=== PATIENT | male | born 1940 | race African-American/Black ===

== ENCOUNTER 2023-01-27 11:05 | Inpatient (IN) | payer MEDICARE, MEDICAID ==
[~2023-01-27] VITALS: Ht 182.9 cm; Wt 83.6 kg
[~2023-01-27 11:05] MED LIST: ALLO300T2 PO; AMLO5TAB88 PO; APIX2.5T PO; ASCO-339 PO; ASPI-1497 PO; ATOR40TA70 PO; CLON0.1T PO; COR25 PO; FAMO20TA8 PO; GABA-534 PO; HYDR-4001 PO; LOSA100T33 PO; MULT-230 PO; TOPUD PO; ZINC50TA69 PO
[2023-01-27] MEDS ORDERED: ONDANSETRON HCL 4MG/2ML INJ IV STA (11:23)
[2023-01-27] MEDS ORDERED: SODIUM CHLORIDE 0.9% 1,000 ML IV ONE ×2 (11:30→16:00)
[2023-01-27] MEDS ORDERED: ONDANSETRON HCL 4MG/2ML INJ IV NR (14:00)
[2023-01-27 14:54] LABS: HEMATOCRIT. 40.9 % (42.0-52.0); HEMOGLOBIN. 13.6 g/dL (14.0-18.0); MEAN CORPUSCULAR HEMOGLOBIN 29.5 pg (28.0-32.0); MEAN CORPUSCULAR HGB CONC 33.2 g/dL (31.0-37.0); MEAN CORPUSCULAR VOLUME 88.9 fL (80.0-94.0); MEAN PLATELET VOLUME 7.7 fl (7.4-10.4); PLATELET 279 x1000/uL (130-400); RED CELL DISTRIBUTION WIDTH 15.9 % (11.6-14.6); WHITE BLOOD COUNT 22.8 x1000/uL (4.5-11.0)
[2023-01-27 14:56] LABS: DIFFERENTIAL COMMENT 1
[2023-01-27] MEDS ORDERED: MORPHINE SULFATE 4 MG/ML CPJ (NOT FOR IM USE) IV ONE (15:00)
[2023-01-27 15:10] LABS: ALANINE AMINOTRANSFERASE 11 IU/L (10-49); ASPARTATE AMINOTRANSFERASE 18 IU/L (<34); BILIRUBIN TOTAL 2.4 mg/dL (0.1-1.0); CARBON DIOXIDE 27 mEq/L (21-32); CHLORIDE 105 mEq/L (98-107); CREATININE 0.9 mg/dL (0.6-1.3); GLUCOSE 151 mg/dL (70-105); POTASSIUM 3.7 mEq/L (3.5-5.1); PROTEIN TOTAL 7.7 g/dL (6.0-8.3); SODIUM 143 mEq/L (136-145); TROPONIN I HIGH SENSITIVITY 31 ng/L (3.0-53); UREA NITROGEN BLOOD 28 mg/dL (9-23)
[2023-01-27 15:23] LABS: LACTIC ACID 2.2 mmol/L (0.4-2.0)
[2023-01-27 15:24] LABS: PLATELET ESTIMATE NORMAL
[2023-01-27] MEDS ORDERED: VANCOMYCIN 1G PREMIX 200 ML IV NR (15:45)
[2023-01-27] MEDS ORDERED: PIPERACILLIN/TAZOBACTAM 3.375GM/50ML PREMIX IV ONE (15:45)
[2023-01-27] MEDS ORDERED: PIPERACILLIN/TAZ 3.375G PREMIX 50 ML IV NR (16:00)
[2023-01-27] MEDS ORDERED: GUAIFENESIN 200MG/10ML SUGAR FREE UDC PO PRN (18:00)
[2023-01-27] MEDS ORDERED: ONDANSETRON HCL 4MG/2ML INJ IV PRN (18:00)
[2023-01-27] MEDS: SODIUM CHLORIDE 0.45% 1,000 ML IV SCH ×2 (18:00→22:43)
[2023-01-27] MEDS ORDERED: IPRATROPIUM/ALBUTEROL 0.5-3(2.5)MG/3ML NEB HHN PRN (18:00)
[2023-01-27] MEDS ORDERED: CLONIDINE 0.1MG TABLET PO PRN (18:00)
[2023-01-27] MEDS ORDERED: MAGNESIUM/ALUMINUM HYDROXIDE/SIMETHICONE 30ML UDC PO PRN (18:00)
[2023-01-27] MEDS ORDERED: DOCUSATE SODIUM 100MG CAPSULE PO PRN (18:00)
[2023-01-27] MEDS ORDERED: ACETAMINOPHEN 325MG TABLET PO PRN (18:00)
[2023-01-27 18:06] VITALS: BP 128/111; PULSE 80; RESP 16; TEMP 98
[2023-01-27 18:11] VITALS: BP 128/111; PULSE 78; RESP 16; TEMP 98
[2023-01-27] MEDS ORDERED: DEXTROSE 50% WATER 50ML SYRINGE IV PRN (18:45)
[2023-01-27] MEDS: PANTOPRAZOLE SODIUM 40 MG/VIAL IV SCH (18:45)
[2023-01-27 20:06] VITALS: BP 149/61; PULSE 86; RESP 16; TEMP 98.4
[2023-01-27] MEDS: INSULIN LISPRO 100 UNITS/ML SUBCUT SCH (20:46)
[2023-01-27] MEDS: BLOOD SUGAR DIAGNOSTIC STRIP TEST SCH (20:46)
[2023-01-27 21:12] LABS: INR 1.1; PROTHROMBIN TIME 11.8 sec (9.6-11.0)
[2023-01-27 21:41] LABS: BILIRUBIN DIRECT 0.8 mg/dL (<=3.0)
[2023-01-27] MEDS: PIPERACILLIN/TAZOBACTAM 3.375 G in DEXTROSE 5% WATER 50 ML IV SCH (22:00)
[2023-01-27] MEDS: VANCOMYCIN 1.25GM PMX (XELLIA) 250 ML IV SCH (23:20)
[2023-01-28 00:08] VITALS: BP 151/69; PULSE 80; RESP 19; TEMP 98
[2023-01-28] MEDS: PIPERACILLIN/TAZOBACTAM 3.375 G in DEXTROSE 5% WATER 50 ML IV SCH ×4 (02:34→21:00)
[2023-01-28 04:21] VITALS: BP 179/78; PULSE 83; RESP 20; TEMP 98.2
[2023-01-28 05:35] LABS: CLARITY URINE CLOUDY (CLEAR); COLOR URINE DARK YELLOW (YELLOW); GLUCOSE URINE NEGATIVE (NEGATIVE); KETONES URINE 1+ (NEGATIVE); LEUKOCYTE ESTERASE URINE NEGATIVE (NEGATIVE); NITRITE URINE NEGATIVE (NEGATIVE); OCCULT BLOOD URINE TRACE (NEGATIVE); PH URINE 5.5 (4.5-8.0); PROTEIN URINE 2+ (NEGATIVE); SPECIFIC GRAVITY URINE 1.028 (1.005-1.030)
[2023-01-28 05:37] LABS: SQUAMOUS EPITHELIAL CELL URINE 1+ /lpf (RARE/1+); YEAST URINE NONE SEEN
[2023-01-28 05:48] LABS: BACTERIA URINE 1+; RBC URINE 0-2 /hpf (0-2)
[2023-01-28] MEDS: BLOOD SUGAR DIAGNOSTIC STRIP TEST SCH ×4 (06:32→20:44)
[2023-01-28] MEDS: INSULIN LISPRO 100 UNITS/ML SUBCUT SCH ×4 (06:33→20:44)
[2023-01-28 06:55] LABS: HEMATOCRIT. 37.3 % (42.0-52.0); HEMOGLOBIN. 12.5 g/dL (14.0-18.0); MEAN CORPUSCULAR HEMOGLOBIN 30.3 pg (28.0-32.0); MEAN CORPUSCULAR HGB CONC 33.5 g/dL (31.0-37.0); MEAN CORPUSCULAR VOLUME 90.4 fL (80.0-94.0); MEAN PLATELET VOLUME 7.9 fl (7.4-10.4); PLATELET 286 x1000/uL (130-400); RED BLOOD CELL COUNT 4.13 mill/uL (4.7-6.1); RED CELL DISTRIBUTION WIDTH 15.6 % (11.6-14.6); WHITE BLOOD COUNT 15.4 x1000/uL (4.5-11.0)
[2023-01-28 07:04] LABS: DIFFERENTIAL COMMENT 1
[2023-01-28 07:17] LABS: ALANINE AMINOTRANSFERASE 9 IU/L (10-49); ALBUMIN 3.9 g/dL (3.2-4.8); ASPARTATE AMINOTRANSFERASE 16 IU/L (<34); BILIRUBIN TOTAL 1.6 mg/dL (0.1-1.0); CALCIUM 9.8 mg/dL (8.7-10.4); CARBON DIOXIDE 28 mEq/L (21-32); CHLORIDE 105 mEq/L (98-107); CHOLESTEROL 164 mg/dL (<200); CREATININE 0.8 mg/dL (0.6-1.3); GLUCOSE 125 mg/dL (70-105); HDL CHOLESTEROL < 20 mg/dL (>55); LDL CHOLESTEROL 129 mg/dL (5-100); PROTEIN TOTAL 7.2 g/dL (6.0-8.3); SODIUM 145 mEq/L (136-145); T4 FREE 1.14 ng/dL (0.89-1.76); THYROID STIMULATING HORMONE 1.22 uIU/mL (0.55-4.78); TRIGLYCERIDE 139 mg/dL (0-150); UREA NITROGEN BLOOD 30 mg/dL (9-23)
[2023-01-28 08:00] VITALS: BP 150/67; PULSE 79; RESP 23; TEMP 99.1
[2023-01-28] MEDS ORDERED: LIDOCAINE HCL 1% 10 MG/ML 10ML VIAL ONE (08:27)
[2023-01-28 09:00] LABS: POTASSIUM 2.8 mEq/L (3.5-5.1)
[2023-01-28] MEDS: PANTOPRAZOLE SODIUM 40 MG/VIAL IV SCH ×2 (09:59→18:13)
[2023-01-28] MEDS: KCL 20MEQ/100ML PREMIX 100 ML IV SCH ×2 (10:02→16:01)
[2023-01-28] MEDS ORDERED: KCL 20MEQ/100ML PREMIX 100 ML IV ONE (11:30)
[2023-01-28 12:00] VITALS: BP 149/88; PULSE 88; RESP 20; TEMP 99
[2023-01-28] MEDS ORDERED: KCL 20MEQ/100ML PREMIX 100 ML IV SCH (12:00)
[2023-01-28 13:12] LABS: HEMATOCRIT 40.5 % (42.0-52.0); HEMOGLOBIN 13.4 g/dL (14.0-18.0)
[2023-01-28 15:44] LABS: IRON 52 ug/dL (65-175); TOTAL IRON BINDING CAPACITY 177 ug/dl (250-425)
[2023-01-28 16:00] VITALS: BP 148/81; PULSE 84; RESP 22; TEMP 98
[2023-01-28] MEDS ORDERED: SODIUM CHL 0.45% + KCL 20MEQ/L 1,000 ML IV SCH (16:00)
[2023-01-28 16:03] LABS: FERRITIN 506 ng/mL (22-322); FOLIC ACID (FOLATE) SERUM 13.28 ng/mL (>5.38); VITAMIN B12 SERUM 281 pg/mL (211-911)
[2023-01-28 17:22] LABS: POTASSIUM 3.7 mEq/L (3.5-5.1)
[2023-01-28 17:22] LABS: PLATELET ESTIMATE NORMAL
[2023-01-28] MEDS ORDERED: KCL 20MEQ/100ML PREMIX 100 ML IV NR (18:00)
[2023-01-28] MEDS: VANCOMYCIN 1.25GM PMX (XELLIA) 250 ML IV SCH (18:14)
[2023-01-28] MEDS: DEXT 5%/0.45% NACL 1000ML 1,000 ML IV SCH (18:14)
[2023-01-28 20:00] VITALS: BP 97/63; PULSE 88; RESP 22; TEMP 98.5
[2023-01-29] VITALS: BP 138/68; PULSE 88; RESP 17; TEMP 98.4
[2023-01-29 02:12] LABS: HEMATOCRIT 37.5 % (42.0-52.0); HEMOGLOBIN 12.6 g/dL (14.0-18.0); MEAN CORPUSCULAR HEMOGLOBIN 29.9 pg (28.0-32.0); MEAN CORPUSCULAR HGB CONC 33.6 g/dL (31.0-37.0); PLATELET 282 x1000/uL (130-400); RED BLOOD CELL COUNT 4.21 mill/uL (4.7-6.1); RED CELL DISTRIBUTION WIDTH 15.9 % (11.6-14.6); WHITE BLOOD COUNT 12.7 x1000/uL (4.5-11.0)
[2023-01-29 04:00] VITALS: BP 145/57; PULSE 93; RESP 13; TEMP 98.4
[2023-01-29 04:00] LABS: BASOPHILS % 0.3 % (0.0-2.0); DIFFERENTIAL COMMENT 0; EOSINOPHILS % 0.2 % (0.0-5.0); HEMATOCRIT. 41.1 % (42.0-52.0); HEMOGLOBIN. 13.8 g/dL (14.0-18.0); LYMPHOCYTES % 11.6 % (20.0-50.0); MEAN CORPUSCULAR HEMOGLOBIN 29.7 pg (28.0-32.0); MEAN CORPUSCULAR HGB CONC 33.5 g/dL (31.0-37.0); MEAN CORPUSCULAR VOLUME 88.7 fL (80.0-94.0); MEAN PLATELET VOLUME 7.5 fl (7.4-10.4); MONOCYTES % 8.9 % (2.0-8.0); PLATELET 290 x1000/uL (130-400); RED BLOOD CELL COUNT 4.64 mill/uL (4.7-6.1); RED CELL DISTRIBUTION WIDTH 15.3 % (11.6-14.6); WHITE BLOOD COUNT 11.8 x1000/uL (4.5-11.0)
[2023-01-29 04:07] LABS: INR 1.1; PROTHROMBIN TIME 11.8 sec (9.6-11.0)
[2023-01-29] MEDS: DEXT 5%/0.45% NACL 1000ML 1,000 ML IV SCH ×3 (04:20→22:09)
[2023-01-29 05:04] LABS: CARBON DIOXIDE 25 mEq/L (21-32); CHLORIDE 108 mEq/L (98-107); CREATININE 0.8 mg/dL (0.6-1.3); GLUCOSE 171 mg/dL (70-105); POTASSIUM 3.5 mEq/L (3.5-5.1); SODIUM 144 mEq/L (136-145); UREA NITROGEN BLOOD 14 mg/dL (9-23)
[2023-01-29] MEDS: PIPERACILLIN/TAZOBACTAM 3.375 G in DEXTROSE 5% WATER 50 ML IV SCH ×3 (05:38→22:06)
[2023-01-29] MEDS: BLOOD SUGAR DIAGNOSTIC STRIP TEST SCH ×4 (06:50→21:00)
[2023-01-29] MEDS: INSULIN LISPRO 100 UNITS/ML SUBCUT SCH ×4 (07:13→21:00)
[2023-01-29 08:00] VITALS: BP 143/87; PULSE 98; RESP 21; TEMP 98.4
[2023-01-29] MEDS: PANTOPRAZOLE SODIUM 40 MG/VIAL IV SCH ×2 (09:29→17:44)
[2023-01-29 09:32] LABS: HEMOGLOBIN 12.3 g/dL (14.0-18.0)
[2023-01-29] MEDS ORDERED: VANCOMYCIN 1.25GM PMX (XELLIA) 250 ML IV SCH (10:00)
[2023-01-29 12:00] VITALS: BP 135/60; PULSE 89; RESP 17; TEMP 99
[2023-01-29 13:34] LABS: HEMATOCRIT 38.2 % (42.0-52.0)
[2023-01-29] MEDS ORDERED: KCL 20MEQ/100ML PREMIX 100 ML IV NR (15:30)
[2023-01-29 16:00] VITALS: BP 130/80; PULSE 97; RESP 18; TEMP 98.4
[2023-01-29] MEDS ORDERED: ONDANSETRON HCL 4MG/2ML INJ IV PRN (16:00)
[2023-01-29] MEDS ORDERED: LABETALOL 5MG/ML SYR 20 MG/4 ML SYRINGE IV PRN (16:00)
[2023-01-29] MEDS ORDERED: MEPERIDINE HCL/PF 25MG/ML CPJ IV PRN (16:00)
[2023-01-29] MEDS ORDERED: HYDROMORPHONE HCL/PF 2MG/ML CPJ IV PRN (16:00)
[2023-01-29] MEDS: METOCLOPRAMIDE HCL 10MG/2ML VIAL IV SCH (17:44)
[2023-01-29] MEDS: SUCRALFATE 1 G/10 ML UDC PO SCH ×2 (17:45→22:08)
[2023-01-29 20:00] VITALS: PULSE 89; RESP 18; TEMP 97.9
[2023-01-30] VITALS: BP 154/64; PULSE 110; RESP 21; TEMP 98.4
[2023-01-30 04:00] VITALS: BP 138/75; PULSE 87; RESP 24; TEMP 98.2
[2023-01-30] MEDS ORDERED: VANCOMYCIN 1250MG in DEXTROSE 5% WATER 250ML IV SCH (04:00)
[2023-01-30] MEDS: METOCLOPRAMIDE HCL 10MG/2ML VIAL IV SCH (06:16)
[2023-01-30] MEDS: PIPERACILLIN/TAZOBACTAM 3.375 G in DEXTROSE 5% WATER 50 ML IV SCH (06:16)
[2023-01-30] MEDS: SUCRALFATE 1 G/10 ML UDC PO SCH (06:16)
[2023-01-30] MEDS: BLOOD SUGAR DIAGNOSTIC STRIP TEST SCH (06:29)
[2023-01-30] MEDS: INSULIN LISPRO 100 UNITS/ML SUBCUT SCH (06:29)
[2023-01-30 08:00] VITALS: BP 145/49; PULSE 88; RESP 16; TEMP 97.6
[2023-01-30] MEDS: PANTOPRAZOLE SODIUM 40 MG/VIAL IV SCH (09:00)
[2023-01-30] MEDS ORDERED: SUCR1TAB30 PO (10:03)
[2023-01-30] MEDS ORDERED: PANT40SU PO (10:03)
[2023-01-30 11:24] LABS: HEMATOCRIT. 34.3 % (42.0-52.0); HEMOGLOBIN. 11.5 g/dL (14.0-18.0); MEAN CORPUSCULAR HEMOGLOBIN 29.6 pg (28.0-32.0); MEAN CORPUSCULAR HGB CONC 33.6 g/dL (31.0-37.0); MEAN CORPUSCULAR VOLUME 88.1 fL (80.0-94.0); MEAN PLATELET VOLUME 7.4 fl (7.4-10.4); PLATELET 269 x1000/uL (130-400); RED BLOOD CELL COUNT 3.89 mill/uL (4.7-6.1); RED CELL DISTRIBUTION WIDTH 15.5 % (11.6-14.6); WHITE BLOOD COUNT 14.1 x1000/uL (4.5-11.0)
[2023-01-30 11:29] LABS: DIFFERENTIAL COMMENT 1
[2023-01-30 11:57] LABS: ALANINE AMINOTRANSFERASE 8 IU/L (10-49); ALBUMIN 3.2 g/dL (3.2-4.8); ASPARTATE AMINOTRANSFERASE 15 IU/L (<34); BILIRUBIN TOTAL 1.3 mg/dL (0.1-1.0); CALCIUM 8.8 mg/dL (8.7-10.4); CARBON DIOXIDE 26 mEq/L (21-32); CHLORIDE 109 mEq/L (98-107); CREATININE 0.7 mg/dL (0.6-1.3); GLUCOSE 191 mg/dL (70-105); PROTEIN TOTAL 6.1 g/dL (6.0-8.3); SODIUM 143 mEq/L (136-145); UREA NITROGEN BLOOD 9 mg/dL (9-23)
[2023-01-30 15:14] VITALS: BP 128/57; PULSE 78; TEMP 99.2; O2SAT 99
[2023-01-31 12:54] LABS: ANISOCYTOSIS 1+; PLATELET ESTIMATE NORMAL
== END 2023-01-30 15:22 | DRG 871 ==
LOC: ER 11:05 → 3WST 15:50
PROVIDERS: ADMIT Internal Medicine; ATTEND Internal Medicine
PROC: 05H633Z Insertion of Infusion Device into Left Subclavian Vein, Percutaneous Approach (ICD-10-PCS; 2023-01-28)
PROC: B547ZZA Ultrasonography of Left Subclavian Vein, Guidance (ICD-10-PCS; 2023-01-28)
PROC: 0DB78ZX Excision of Stomach, Pylorus, Via Natural or Artificial Opening Endoscopic, Diagnostic (ICD-10-PCS; principal; 2023-01-29)
DX: A41.9 Sepsis, unspecified organism (principal); K27.4 Chronic or unspecified peptic ulcer, site unspecified, with hemorrhage; K56.7 Ileus, unspecified; K22.10 Ulcer of esophagus without bleeding; K21.9 Gastro-esophageal reflux disease without esophagitis; K31.89 Other diseases of stomach and duodenum; D64.9 Anemia, unspecified; I10 Essential (primary) hypertension; I48.91 Unspecified atrial fibrillation; E11.621 Type 2 diabetes mellitus with foot ulcer; E80.6 Other disorders of bilirubin metabolism; E87.6 Hypokalemia; E11.51 Type 2 diabetes mellitus with diabetic peripheral angiopathy without gangrene; L97.509 Non-pressure chronic ulcer of other part of unspecified foot with unspecified severity; N40.0 Benign prostatic hyperplasia without lower urinary tract symptoms; Z79.01 Long term (current) use of anticoagulants; Z79.899 Other long term (current) drug therapy; Z85.46 Personal history of malignant neoplasm of prostate; Z89.612 Acquired absence of left leg above knee; Z95.828 Presence of other vascular implants and grafts; Z20.822 Contact with and (suspected) exposure to COVID-19
CPT/HCPCS: 36415; 36573; 71045; 74018; 74176; 80048; 80053; 80061; 80202; 81003; 82248; 82607; 82728; 82746; 82962; 83036; 83540; 83550; 83605; 83615; 83735; 83880; 84132; 84145; 84439; 84443; 84484; 85014; 85018; 85025; 85027; 85044; 87426; 88305; 93005; 93922; 99285; A6261; C1725; C1893; C9113; J1815; J2270; J2405; J2543; J2765; J3370; J3480; J3490; J7030; J7060

== ENCOUNTER 2023-05-07 15:28 | Inpatient (IN) | payer MEDICARE, MEDICAID ==
[~2023-05-07] VITALS: Ht 172.7 cm; Wt 82.1 kg
[~2023-05-07 15:28] MED LIST changes: -APIX2.5T PO; -ASPI-1497 PO; -FAMO20TA8 PO; -HYDR-4001 PO; +PANT40SU PO; +SUCR1TAB30 PO
[2023-05-07 17:42] LABS: BASOPHILS % 0.4 % (0.0-2.0); EOSINOPHILS % 0.2 % (0.0-5.0); HEMOGLOBIN. 13.5 g/dL (14.0-18.0); MEAN CORPUSCULAR HEMOGLOBIN 29.4 pg (28.0-32.0); MEAN CORPUSCULAR HGB CONC 32.9 g/dL (31.0-37.0); MEAN CORPUSCULAR VOLUME 89.4 fL (80.0-94.0); MEAN PLATELET VOLUME 7.3 fl (7.4-10.4); NEUTROPHILS % 77.4 % (40.0-76.0); PLATELET 268 x1000/uL (130-400); RED BLOOD CELL COUNT 4.59 mill/uL (4.7-6.1); RED CELL DISTRIBUTION WIDTH 15.5 % (11.6-14.6)
[2023-05-07 17:56] LABS: AMMONIA < 17 uMol/L (<32)
[2023-05-07 17:57] LABS: ALANINE AMINOTRANSFERASE < 7 IU/L (10-49); ALBUMIN 4.3 g/dL (3.2-4.8); ASPARTATE AMINOTRANSFERASE 22 IU/L (<34); BILIRUBIN TOTAL 0.8 mg/dL (0.1-1.0); CALCIUM 9.4 mg/dL (8.7-10.4); CARBON DIOXIDE 21 mEq/L (21-32); CHLORIDE 105 mEq/L (98-107); CREATININE 0.7 mg/dL (0.6-1.3); GLUCOSE 86 mg/dL (70-105); PROTEIN TOTAL 8.1 g/dL (6.0-8.3); SODIUM 137 mEq/L (136-145); UREA NITROGEN BLOOD 10 mg/dL (9-23)
[2023-05-07 18:16] LABS: ETHANOL BLOOD < 10 mg/dL (<10); TROPONIN I HIGH SENSITIVITY 59 ng/L (3.0-53)
[2023-05-07] MEDS: LORAZEPAM 2MG/ML INJ IV ONE (18:54)
[2023-05-07] MEDS ORDERED: DOCUSATE SODIUM 100MG CAPSULE PO PRN (19:45)
[2023-05-07] MEDS ORDERED: ACETAMINOPHEN 325MG TABLET PO PRN (19:45)
[2023-05-07] MEDS ORDERED: GUAIFENESIN 200MG/10ML SUGAR FREE UDC PO PRN (19:45)
[2023-05-07] MEDS ORDERED: IPRATROPIUM/ALBUTEROL 0.5-3(2.5)MG/3ML NEB HHN PRN (19:45)
[2023-05-07] MEDS ORDERED: ONDANSETRON HCL 4MG/2ML INJ IV PRN (19:45)
[2023-05-07] MEDS ORDERED: CLONIDINE 0.1MG TABLET PO PRN (19:45)
[2023-05-07] MEDS: SODIUM CHLORIDE 0.9% 1,000 ML IV ONE (20:07)
[2023-05-07] MEDS: CEFTRIAXONE 1GM/50ML 50 ML IV ONE (20:08)
[2023-05-07] MEDS: AZITHROMYCIN 500MG/250ML 250 ML IV ONE (20:28)
[2023-05-07] MEDS: IOHEXOL-350 100 ML BOTTLE ONE (22:26)
[2023-05-07] MEDS ORDERED: NICARDIPINE 50 MG in SODIUM CHLORIDE 0.9% 230 ML IV STA (22:34)
[2023-05-07] MEDS: SODIUM CHLORIDE 0.9% 1,000 ML IV SCH (23:27)
[2023-05-07] MEDS ORDERED: DEXTROSE 50% WATER 50ML SYRINGE IV PRN (23:30)
[2023-05-07] MEDS: DEXAMETHASONE 10 MG/ML VIAL IV ONE (23:34)
[2023-05-07] MEDS: LEVETIRACETAM 500MG PREMIX 100 ML IV ONE (23:35)
[2023-05-07] MEDS: NICARDIPINE 40MG/200ML PREMIX 200 ML IV NR (23:51)
[2023-05-08] VITALS (74 sets, daily range): BP systolic 91–179; BP diastolic 41–149; PULSE 74–98; RESP 15–29; TEMP 97.8–99.4
[2023-05-08] MEDS: DEXAMETHASONE 4MG/ML 1ML VIAL IV SCH (00:09)
[2023-05-08] MEDS: DEXT 5%/LACTATED RINGERS 1,000 ML IV SCH (02:00)
[2023-05-08] MEDS: BLOOD SUGAR DIAGNOSTIC STRIP TEST SCH (05:35)
[2023-05-08 05:39] LABS: HEMATOCRIT. 36.2 % (42.0-52.0); MEAN CORPUSCULAR HEMOGLOBIN 29.6 pg (28.0-32.0); MEAN CORPUSCULAR HGB CONC 33.2 g/dL (31.0-37.0); MEAN CORPUSCULAR VOLUME 89.1 fL (80.0-94.0); MEAN PLATELET VOLUME 7.7 fl (7.4-10.4); PLATELET 275 x1000/uL (130-400); RED BLOOD CELL COUNT 4.06 mill/uL (4.7-6.1); RED CELL DISTRIBUTION WIDTH 15.4 % (11.6-14.6); WHITE BLOOD COUNT 12.9 x1000/uL (4.5-11.0)
[2023-05-08] MEDS: HYDRALAZINE 20MG/ML VIAL IV PRN (05:40)
[2023-05-08 05:47] LABS: CALCIUM 8.6 mg/dL (8.7-10.4); CARBON DIOXIDE 18 mEq/L (21-32); CHLORIDE 107 mEq/L (98-107); CREATININE 0.6 mg/dL (0.6-1.3); GLUCOSE 136 mg/dL (70-105); POTASSIUM 3.7 mEq/L (3.5-5.1); SODIUM 137 mEq/L (136-145); UREA NITROGEN BLOOD 8 mg/dL (9-23)
[2023-05-08 05:50] LABS: CHOLESTEROL 200 mg/dL (<200); HDL CHOLESTEROL 25 mg/dL (>55); IRON 38 ug/dL (65-175); LDL CHOLESTEROL 149 mg/dL (5-100); PHOSPHORUS 1.8 mg/dL (2.5-4.9); TOTAL IRON BINDING CAPACITY 167 ug/dl (250-425); TRIGLYCERIDE 67 mg/dL (0-150)
[2023-05-08] MEDS: INSULIN LISPRO 100 UNITS/ML SUBCUT SCH (06:12)
[2023-05-08 06:36] LABS: DIFFERENTIAL COMMENT 1
[2023-05-08] MEDS: NICARDIPINE 100 MG in SODIUM CHLORIDE 0.9% 60 ML IV PRN (08:10)
[2023-05-08] MEDS ORDERED: LEVETIRACETAM 500 MG in SODIUM CHLORIDE 0.9% 100 ML IV SCH (09:00)
[2023-05-08] MEDS ORDERED: LEVETIRACETAM 500MG PREMIX 100 ML IV SCH (09:00)
[2023-05-08] MEDS: LEVETIRACETAM 500MG PREMIX 100 ML IV SCH (10:30)
[2023-05-08] MEDS ORDERED: LIDOCAINE HCL 1% 10 MG/ML 10ML VIAL ONE ×3 (12:37→13:53)
[2023-05-08 13:00] LABS: PLATELET ESTIMATE NORMAL
[2023-05-08 13:53] LABS: CREATINE KINASE 160 IU/L (46-171)
[2023-05-08 14:16] LABS: TROPONIN I HIGH SENSITIVITY 63 ng/L (3.0-53)
[2023-05-08 14:17] LABS: FERRITIN 475 ng/mL (22-322); FOLIC ACID (FOLATE) SERUM > 20.00 ng/mL (>5.38); VITAMIN B12 SERUM 503 pg/mL (211-911)
[2023-05-08] MEDS ORDERED: MORPHINE SULFATE 4 MG/ML CPJ (NOT FOR IM USE) IV NR (15:00)
[2023-05-08] MEDS ORDERED: AZITHROMYCIN 250 MG in DEXT 5% WATER 250 ML IV SCH (19:00)
[2023-05-08] MEDS ORDERED: CEFTRIAXONE 1GM/50ML 50 ML IV SCH (19:00)
[2023-05-08] MEDS ORDERED: MORPHINE SULFATE 2 MG/ML CPJ (NOT FOR IM USE) IV NR (19:30)
[2023-05-08] MEDS: CEFTRIAXONE 1GM/50ML 50 ML IV SCH (20:00)
[2023-05-08] MEDS ORDERED: AZITHROMYCIN 500MG/250ML IV SCH (20:00)
[2023-05-08] MEDS: AZITHROMYCIN 500MG/250ML IV SCH (20:00)
[2023-05-09] VITALS (72 sets, daily range): BP systolic 110–168; BP diastolic 45–131; PULSE 76–112; RESP 12–23; TEMP 98–99.1
[2023-05-09] MEDS ORDERED: LIDOCAINE HCL 1% 10 MG/ML 10ML VIAL ONE (08:15)
[2023-05-09] MEDS: MORPHINE SULFATE 2 MG/ML CPJ (NOT FOR IM USE) IV NR (08:23)
[2023-05-09] MEDS ORDERED: MORPHINE SULFATE 4 MG/ML CPJ (NOT FOR IM USE) IV NR (08:30)
[2023-05-09] MEDS ORDERED: GADOTERATE MEGLUMINE 5 MMOL/10 ML VIAL IV ONE (09:40)
[2023-05-09] MEDS ORDERED: DEXT 5%/0.9% NACL 1,000 ML IV ONE (14:00)
[2023-05-09] MEDS ORDERED: NALOXONE HCL 0.4MG/ML VIAL IV PRN (22:30)
[2023-05-09] MEDS: MORPHINE SULFATE 2 MG/ML CPJ (NOT FOR IM USE) IV PRN (22:31)
[2023-05-10] VITALS (96 sets, daily range): BP systolic 101–173; BP diastolic 57–93; PULSE 65–109; RESP 11–28; TEMP 97.5–99.1
[2023-05-10] MEDS ORDERED: DEXTROSE 50% WATER 50ML SYRINGE IV PRN (01:45)
[2023-05-10 05:10] LABS: HEMATOCRIT. 38.2 % (42.0-52.0); HEMOGLOBIN. 13.3 g/dL (14.0-18.0); LYMPHOCYTES % 7.5 % (20.0-50.0); MEAN CORPUSCULAR HEMOGLOBIN 30.4 pg (28.0-32.0); MEAN CORPUSCULAR HGB CONC 34.8 g/dL (31.0-37.0); MEAN CORPUSCULAR VOLUME 87.3 fL (80.0-94.0); MEAN PLATELET VOLUME 7.7 fl (7.4-10.4); MONOCYTES % 3.9 % (2.0-8.0); NEUTROPHILS % 88.6 % (40.0-76.0); PLATELET 300 x1000/uL (130-400); RED BLOOD CELL COUNT 4.38 mill/uL (4.7-6.1); RED CELL DISTRIBUTION WIDTH 15.6 % (11.6-14.6); WHITE BLOOD COUNT 12.7 x1000/uL (4.5-11.0)
[2023-05-10 05:34] LABS: ALANINE AMINOTRANSFERASE 10 IU/L (10-49); ALBUMIN 3.9 g/dL (3.2-4.8); ASPARTATE AMINOTRANSFERASE 27 IU/L (<34); BILIRUBIN TOTAL 0.6 mg/dL (0.1-1.0); CALCIUM 9.1 mg/dL (8.7-10.4); CARBON DIOXIDE 24 mEq/L (21-32); CHLORIDE 108 mEq/L (98-107); CREATININE 0.7 mg/dL (0.6-1.3); GLUCOSE 167 mg/dL (70-105); PHOSPHORUS 2.3 mg/dL (2.5-4.9); SODIUM 143 mEq/L (136-145); UREA NITROGEN BLOOD 13 mg/dL (9-23)
[2023-05-10] MEDS: INSULIN LISPRO 100 UNITS/ML SUBCUT SCH (06:07)
[2023-05-10] MEDS: AMLODIPINE 5MG TABLET PO SCH (09:24)
[2023-05-10] MEDS: LOSARTAN 100 MG TABLET PO SCH (09:24)
[2023-05-10] MEDS: CARVEDILOL 12.5MG TABLET PO SCH (09:24)
[2023-05-10] MEDS: BLOOD SUGAR DIAGNOSTIC STRIP TEST SCH (11:34)
[2023-05-10] MEDS: POTASSIUM CHLORIDE 20MEQ TABLET SR PO NR (14:36)
[2023-05-10] MEDS: CLONIDINE HCL 0.3MG/24HR PATCH TD SCH (14:39)
[2023-05-10] MEDS: ACETAMINOPHEN 325MG TABLET PO PRN (20:55)
[2023-05-11] VITALS (62 sets, daily range): BP systolic 97–165; BP diastolic 46–106; PULSE 65–96; RESP 12–40; TEMP 97.4–98.3
[2023-05-11 05:07] LABS: HEMATOCRIT. 36.1 % (42.0-52.0); HEMOGLOBIN. 12.3 g/dL (14.0-18.0); LYMPHOCYTES % 7.1 % (20.0-50.0); MEAN CORPUSCULAR HEMOGLOBIN 29.3 pg (28.0-32.0); MEAN CORPUSCULAR HGB CONC 34.1 g/dL (31.0-37.0); MEAN CORPUSCULAR VOLUME 86.1 fL (80.0-94.0); MEAN PLATELET VOLUME 7.6 fl (7.4-10.4); MONOCYTES % 5.6 % (2.0-8.0); NEUTROPHILS % 87.3 % (40.0-76.0); PLATELET 342 x1000/uL (130-400); RED BLOOD CELL COUNT 4.19 mill/uL (4.7-6.1); RED CELL DISTRIBUTION WIDTH 15.6 % (11.6-14.6); WHITE BLOOD COUNT 18.9 x1000/uL (4.5-11.0)
[2023-05-11 05:44] LABS: ALANINE AMINOTRANSFERASE 14 IU/L (10-49); ALBUMIN 3.7 g/dL (3.2-4.8); ASPARTATE AMINOTRANSFERASE 23 IU/L (<34); BILIRUBIN TOTAL 0.6 mg/dL (0.1-1.0); CALCIUM 9.5 mg/dL (8.7-10.4); CARBON DIOXIDE 27 mEq/L (21-32); CHLORIDE 109 mEq/L (98-107); CREATININE 0.7 mg/dL (0.6-1.3); GLUCOSE 130 mg/dL (70-105); PHOSPHORUS 1.7 mg/dL (2.5-4.9); POTASSIUM 3.6 mEq/L (3.5-5.1); PROTEIN TOTAL 6.9 g/dL (6.0-8.3); SODIUM 144 mEq/L (136-145); UREA NITROGEN BLOOD 16 mg/dL (9-23)
[2023-05-11] MEDS: DIPHENHYDRAMINE 25MG CAPSULE PO NR (08:29)
[2023-05-11] MEDS: NITROGLYCERIN 0.1MG/HR PATCH TOP SCH (10:51)
[2023-05-11] MEDS: POTASSIUM PHOSPHATE 15 MMOL in DEXT 5% WATER 245 ML IV NR (15:23)
[2023-05-11] MEDS: MAGNESIUM 2 G PREMIX 50 ML IV NR (15:23)
[2023-05-11] MEDS: LEVETIRACETAM 500MG/5ML CUP PO SCH (22:37)
[2023-05-11] MEDS: CEFTRIAXONE 1,000 MG in DEXTROSE 5% WATER 50 ML IV SCH (22:39)
[2023-05-11] MEDS: AMLODIPINE 5MG TABLET PO SCH (22:39)
[2023-05-12 01:00] VITALS: BP 116/68; PULSE 84; RESP 16; TEMP 97.6
[2023-05-12 04:00] VITALS: BP 118/65; PULSE 78; RESP 16; TEMP 98.1
[2023-05-12 08:00] VITALS: BP 143/62; PULSE 81; RESP 18; TEMP 97.9
[2023-05-12] MEDS: ISOSORBIDE MONONITRATE 60MG TABLET SR 24HR PO SCH (08:25)
[2023-05-12 10:33] LABS: DIFFERENTIAL COMMENT 0; HEMATOCRIT. 38.4 % (42.0-52.0); HEMOGLOBIN. 12.5 g/dL (14.0-18.0); LYMPHOCYTES % 10.6 % (20.0-50.0); MEAN CORPUSCULAR HEMOGLOBIN 28.9 pg (28.0-32.0); MEAN CORPUSCULAR HGB CONC 32.4 g/dL (31.0-37.0); MEAN CORPUSCULAR VOLUME 89.2 fL (80.0-94.0); MEAN PLATELET VOLUME 7.5 fl (7.4-10.4); MONOCYTES % 5.7 % (2.0-8.0); NEUTROPHILS % 83.7 % (40.0-76.0); PLATELET 277 x1000/uL (130-400); RED CELL DISTRIBUTION WIDTH 15.5 % (11.6-14.6); WHITE BLOOD COUNT 14.9 x1000/uL (4.5-11.0)
[2023-05-12 10:52] LABS: CALCIUM 8.8 mg/dL (8.7-10.4); CARBON DIOXIDE 23 mEq/L (21-32); CHLORIDE 109 mEq/L (98-107); CREATININE 0.6 mg/dL (0.6-1.3); GLUCOSE 127 mg/dL (70-105); POTASSIUM 3.1 mEq/L (3.5-5.1); SODIUM 140 mEq/L (136-145); UREA NITROGEN BLOOD 15 mg/dL (9-23)
[2023-05-12] MEDS ORDERED: LACTATED RINGERS 1,000 ML IV SCH (11:01)
[2023-05-12 16:00] VITALS: BP 115/54; PULSE 60; RESP 20; TEMP 100
[2023-05-12 16:59] LABS: PHOSPHORUS 2.6 mg/dL (2.5-4.9)
[2023-05-12] MEDS: KCL 20MEQ/100ML PREMIX 100 ML IV NR (18:26)
[2023-05-12 20:00] VITALS: BP 98/40; PULSE 86; RESP 18; TEMP 99
[2023-05-13] VITALS: BP 107/50; PULSE 75; RESP 18; TEMP 98.8
[2023-05-13 04:00] VITALS: BP 112/53; PULSE 72; RESP 18; TEMP 99.1
[2023-05-13] MEDS: ISOSORBIDE MONONITRATE 20MG TABLET PO SCH (09:34)
[2023-05-13] MEDS ORDERED: COR25 PO (11:14)
[2023-05-13] MEDS ORDERED: ATOR40TA70 PO (11:14)
[2023-05-13] MEDS ORDERED: ISMO20 PO (11:14)
[2023-05-13] MEDS ORDERED: LOSA100T33 PO (11:14)
[2023-05-13] MEDS ORDERED: AMLO5TAB88 PO (11:14)
[2023-05-13] MEDS ORDERED: KEPPSOL PO (11:14)
[2023-05-13 15:21] VITALS: BP 110/59; PULSE 74; TEMP 98; O2SAT 99
[2023-05-17] MEDS ORDERED: CLONIDINE HCL 0.3MG/24HR PATCH TD SCH (09:00)
== END 2023-05-13 16:50 | DRG 64 ==
LOC: ER 15:28 → MICUSO 22:20 → EDBEDREQ 22:22 → EDBEDREQSVC 22:22 → ER 05-08 01:35 → 6EST 05-12 00:10
PROVIDERS: ADMIT Internal Medicine; ATTEND Internal Medicine
DX: I60.9 Nontraumatic subarachnoid hemorrhage, unspecified (principal); J18.9 Pneumonia, unspecified organism; I12.9 Hypertensive chronic kidney disease with stage 1 through stage 4 chronic kidney disease, or unspecified chronic kidney disease; I48.91 Unspecified atrial fibrillation; N18.9 Chronic kidney disease, unspecified; E11.22 Type 2 diabetes mellitus with diabetic chronic kidney disease; E87.6 Hypokalemia; Z89.612 Acquired absence of left leg above knee
CPT/HCPCS: 36415; 36573; 70496; 70498; 70553; 71045; 80048; 80053; 80061; 80320; 82040; 82140; 82550; 82607; 82728; 82746; 82962; 83036; 83540; 83550; 83605; 83735; 83930; 84100; 84145; 84484; 85025; 92610; 93005; 93306; 93970; 97162; 97166; 99291; A9577; C1725; C1769; C1887; C1893; J0360; J0456; J0696; J1100; J1815; J1953; J2060; J2270; J3475; J3480; J3490; J7030; J7050; J7060; Q0163; Q9967; G0480